=== PATIENT | female | born 1970 | race Caucasian/White ===

== ENCOUNTER 2020-05-19 15:46 | Emergency (ER) | payer OTHER, SELFPAY ==
[2020-05-19 15:48] VITALS: BP 128/67; PULSE 65; RESP 16; TEMP 36.5; O2SAT 100
--- NOTE | 2020-05-19 16:27 | PC.NURSE ---
Pt states she called her gastro md that is doing her colonoscopy and got advice. Denies pain at present. Ambulatory out of dept with spouse.
== END 2020-05-19 16:27 | disposition left against medical advice (07) ==
LOC: ANHED 16:48
PROVIDERS: PCP Family Medicine Sports Medicine
DX: R10.9 Unspecified abdominal pain (principal)
CPT/HCPCS: 99199